=== PATIENT | male | born 1990 | race Caucasian/White ===

== ENCOUNTER 2017-05-15 08:21 | Emergency (ER) | payer BC ==
--- NOTE | 2017-05-15 10:00 | ED ---
Allergic Reaction/Systemic - HPI Summary HPI Summary: 26 male presents to ED with complaints of a rash that began again yesterday and worsened upon waking up this morning. States he was diagnosed with strep and placed on amoxicillin one month ago. Had a skin reaction shortly after completing antibiotics. Placed on medrol pack, benadryl, a cream and famotidine. Did have relief after 2 days of treamtent and has not had and complications since, until yesterday. States he is still taking medication, still has last 2 days dose of medrol pack. Took benadryl last night. No other medication. Recently had allergy testing without findings for allergies. No other PMHx. Denies any new medication, food, soaps, lotions, detergents. No new medication other than recently having strep and treated with amox ~2-3 weeks ago. States rash is red, itchy and "gets welts" after scratching. States it is sensitive and every time he scratches it welts. States this is the first of the actual erythematous appearing rash that is diffuse, extremities and trunk. States it was on his face this morning however that has since improved. States he felt his lips were slightly swollen this am however has improved. Denies throat swelling/tightening. No other complaints. No PMHx. No discharge or fever. Denies pain. Has not been outside or in the unger recently. No joint aches and no recent tick bites. No known immune illness. - History of Current Complaint Chief Complaint: EDAllergicReaction Time Seen by Provider: 05/15/17 08:46 Hx Obtained From: Patient Onset/Duration: Sudden Onset, Started weeks ago, Resolved - however is now back and worse, Worse Since Timing: Constant - over the past 2 days, Lasting Days - 2 Severity Currently: None Pain Intensity: 0 Pain Scale Used: 0-10 Numeric Location: Diffuse Character: Swelling, Pruritus, Hives Aggravating Factor(s): Nothing - scratching Alleviating Factor(s): Nothing Associated Signs And Symptoms: Positive: Rash - Related Hx Possible Reaction To: Medications - amoxicillin a few weeks ago? - Allergies/Home Medications Allergies/Adverse Reactions: Allergies Allergy/AdvReac Type Severity Reaction Status Date / Time No Known Allergies Allergy Verified 05/15/17 08:27 PMH/Surg Hx/FS Hx/Imm Hx Endocrine/Hematology History: Denies: Hx Anticoagulant Therapy, Hx Diabetes Cardiovascular History: Denies: Hx Hypertension Respiratory History: Denies: Hx Asthma, Hx Seasonal Allergies - Surgical History Surgery Procedure, Year, and Place: n/a - Immunization History Immunizations Up to Date: Yes Infectious Disease History: No Infectious Disease History: Denies: Traveled Outside the [place] in Last 30 Days - Family History Known Family History: Positive: None - Social History Alcohol Use: None Substance Use Type: Reports: None Smoking Status (MU): Unknown if Ever Smoked Review of Systems Constitutional: Negative Cardiovascular: Negative Respiratory: Negative Musculoskeletal: Negative Positive: Rash - itching All Other Systems Reviewed And Are Negative: Yes Physical Exam Triage Information Reviewed: Yes Vital Signs On Initial Exam: Initial Vitals Temp Pulse Resp BP Pulse Ox 97.2 F 61 17 130/78 100 05/15/17 08:23 05/15/17 08:23 05/15/17 08:23 05/15/17 08:23 05/15/17 08:23 Vital Signs Reviewed: Yes Appearance: Positive: Well-Appearing, No Pain Distress, Well-Nourished Skin: Positive: Warm, Skin Color Reflects Adequate Perfusion, Dry, Soft, Erythema @ - diffuse extremities and trunk, urticaria in areas, prutitic, non raised other than urticaria welts, non tender, not warm and no drainage. sparing hands and feet. Negative: Cold, Numb, Cyanosis @, Jaundiced, Target Lesions, Scaly Skin/Lesions, Pale, Weeping Skin/Lesions, Mass @, Marta Tracts, Cold Injury, Heat Injury Head/Face: Positive: Normal Head/Face Inspection Eyes: Positive: Conjunctiva Clear ENT: Positive: Pharynx normal Neck: Positive: Supple, Nontender Respiratory/Lung Sounds: Positive: Clear to Auscultation, Breath Sounds Present. Negative: Rales, Rhonchi, Wheezes Cardiovascular: Positive: Normal, RRR, Pulses are Symmetrical in both Upper and Lower Extremities. Negative: Murmur, Rub Musculoskeletal: Positive: Normal, Strength/ROM Intact Neurological: Positive: Normal, Sensory/Motor Intact, Alert, Oriented to Person Place, Time Diagnostics - Vital Signs Vital Signs Temp Pulse Resp BP Pulse Ox 05/15/17 08:23 97.2 F 61 17 130/78 100 - Laboratory Lab Statement: Any lab studies that have been ordered have been reviewed, and results considered in the medical decision making process. Re-Evaluation - Re-Evaluation First Eval Re-Evaluation Time: 10:45 Change: Unchanged - Dr Bain also evaluated patient Allergic Reaction Course/Dx - Course Course Of Treatment: Dr Bain also evaluated patient's condition. Agrees patient appears to be suffering from a histamine reaction. appears to need stronger steroid as the dose he has been taking over past few days does not seem to be enough. unknown cause of rash. no other concerns as it does not appear to be other etiologies based on physical exam, symptoms and history. also recommended derm and bullet maker referall. continue famotidine, benadryl and try topical anti itch creams. no other concerns. given higher dose of prednisone and zyrtec while in ED. patient was going to take benadryl at home and try use of topical anti itch agent. no other concerns at this time. follow up. aware of worsening signs/symptosm to watch out for and return if occur. - Diagnoses Differential Diagnosis/HQI/PQRI: Positive: Urticaria, Other - allergic reaction Provider Diagnoses: Urticaria, Allergic reaction - Provider Notifications Discussed Care Of Patient With: Dr Barnett, Dr Bain Discharge - Discharge Plan Condition: Stable Disposition: HOME Prescriptions: predniSONE TAB* [Deltasone TAB*] 40 mg PO DAILY #8 tab Patient Education Materials: Urticaria (ED), General Allergic Reaction (ED) Referrals: Yimi MARIE,CYNTHIA Wright [Primary Care Provider] - Diamante Mahajan [Medical Doctor] - Stephen Gonzalez MD [Medical Doctor] - Additional Instructions: Recommend trying topical anti-itching cream (benadryl, coritzone, calamine lotion). Avoid hot showers as it may increase itching. cool compresses/wash clothes to help with itching. Take prescribed prednisone as directed, starting tomorrow as you already had today's dose. Recommend taking in the morning. Benadryl throughout day and at bedtime. Continue famotidine as previously prescribed. Follow up with Derm and bullet maker, and primary care provider. Any new or worsening symptoms (does not improve, worsens, trouble breathing, throat swelling, etc) please return to ED.
[2017-05-15 10:03] VITALS: BP 130/61
[2017-05-15] MEDS ORDERED: predniSONE TAB* 20 MG PO ONE (10:39)
[2017-05-16] MEDS ORDERED: Cetirizine* 10 MG TAB PO ONE (10:39)
== END 2017-05-15 10:52 | disposition home or self-care (01) ==
LOC: ED 08:21
DX: L50.9 Urticaria, unspecified (principal); T78.40XA Allergy, unspecified, initial encounter
CPT/HCPCS: 99282; A9270-GY; J7512